=== PATIENT | male | born 1960 | race African-American/Black ===

== ENCOUNTER 2016-09-03 20:22 | Emergency (ER) | payer OTHER ==
[~2016-09-03] VITALS: Ht 172.7 cm; Wt 56.0 kg
[2016-09-03 21:50] LABS: CLARITY URINE CLEAR (CLEAR); COLOR URINE YELLOW (YELLOW); GLUCOSE URINE NEGATIVE (NEGATIVE); KETONES URINE NEGATIVE (NEGATIVE); LEUKOCYTE ESTERASE URINE TRACE (NEGATIVE); NITRITE URINE NEGATIVE (NEGATIVE); OCCULT BLOOD URINE NEGATIVE (NEGATIVE); PROTEIN URINE NEGATIVE (NEGATIVE); SPECIFIC GRAVITY URINE 1.006 (1.005-1.030); UROBILINOGEN URINE 0.2 E.U./dL (0.2-1.0)
[2016-09-03 21:59] LABS: HEMATOCRIT. 26.4 % (42.0-52.0); HEMOGLOBIN. 8.7 g/dL (14.0-18.0); MEAN CORPUSCULAR HEMOGLOBIN 24.8 pg (28.0-32.0); MEAN CORPUSCULAR VOLUME 75.2 fL (80.0-94.0); PLATELET 348 x1000/uL (130-400); RED BLOOD CELL COUNT 3.51 mill/uL (4.7-6.1); WHITE BLOOD COUNT 2.8 x1000/uL (4.5-11.0)
[2016-09-03 22:00] LABS: DIFFERENTIAL COMMENT 1
[2016-09-03 22:02] LABS: *AMPHETAMINES SCREEN URINE NEGATIVE (NEGATIVE); *BARBITURATES SCREEN URINE NEGATIVE (NEGATIVE); *BENZODIAZEPINES SCREEN URINE NEGATIVE (NEGATIVE); *COCAINE SCREEN URINE PRESUMTIVE POSITIVE (NEGATIVE); CANNABINOID URINE SCREEN NEGATIVE (NEGATIVE); ECSTASY MDMA SCREEN URINE NEGATIVE (NEGATIVE); METHADONE URINE SCREEN NEGATIVE (NEGATIVE); OPIATES URINE SCREEN NEGATIVE (NEGATIVE); PHENCYCLIDINE URINE SCREEN NEGATIVE (NEGATIVE)
[2016-09-03 22:03] LABS: INR 1.1; PROTHROMBIN TIME 11.1 sec
[2016-09-03 22:08] LABS: ALBUMIN 3.4 g/dL (3.4-5.0); ANION GAP 16; CALCIUM 8.2 mg/dL (8.5-10.1); CARBON DIOXIDE 25 mEq/L (21-32); CHLORIDE 104 mEq/L (98-107); ETHANOL BLOOD 80 mg/dL; INDEX HEMOLYSI 1 (1-3); INDEX ICTERIC 1 (1-4); INDEX LIPEMIC 1 (1-3); UREA NITROGEN BLOOD 5 mg/dL (7-21)
[2016-09-03 22:09] LABS: ALANINE AMINOTRANSFERASE 16 IU/L (13-61); eGFR > 60 mL/min (>60)
[2016-09-03 22:10] LABS: BACTERIA URINE TRACE; RBC URINE 0-2 /hpf (0-2); SQUAMOUS EPITHELIAL CELL URINE RARE /lpf (RARE/1+); WBC URINE 0-2 /hpf (0-2)
[2016-09-03 22:12] LABS: ACETAMINOPHEN < 2 ug/mL (10-30)
[2016-09-03 22:14] LABS: NT PRO B-TYPE NATRIURETIC PEP 256 pg/mL (5-125); TROPONIN I < 0.02 ng/mL (0.00-0.04)
[2016-09-03 22:29] LABS: ANISOCYTOSIS 2+; HYPOCHROMASIA 1+; PLATELET ESTIMATE NORMAL
[2016-09-03] MEDS ORDERED: POTASSIUM CHLORIDE 40MEQ/30ML UDC PO ONE (23:15)
[2016-09-03] MEDS ORDERED: POTASSIUM CHLORIDE 20MEQ TABLET SR PO NR (23:45)
[2016-09-03 23:56] VITALS: BP 175/84
== END 2016-09-03 23:59 | disposition home or self-care (01) ==
LOC: ER 20:23
DX: G93.49 Other encephalopathy (principal); N18.6 End stage renal disease; D53.9 Nutritional anemia, unspecified; R00.0 Tachycardia, unspecified; R03.0 Elevated blood-pressure reading, without diagnosis of hypertension; D70.9 Neutropenia, unspecified; F10.10 Alcohol abuse, uncomplicated; Y90.4 Blood alcohol level of 80-99 mg/100 ml; V49.40XA Driver injured in collision with unspecified motor vehicles in traffic accident, initial encounter; Y93.89 Activity, other specified; Y92.410 Unspecified street and highway as the place of occurrence of the external cause; Z72.0 Tobacco use; F14.10 Cocaine abuse, uncomplicated; Z99.2 Dependence on renal dialysis; Z86.73 Personal history of transient ischemic attack (TIA), and cerebral infarction without residual deficits
CPT/HCPCS: 36415; 70450; 71010; 80053; 80305; 80307; 80329; 81001; 82962; 83880; 84443; 84484; 85025; 85610; 93005; 99285; G0482